=== PATIENT | male | born 1945 | race African-American/Black ===

== ENCOUNTER 2021-04-06 04:50 | Day surgery (SDC) | payer OTHER ==
[2021-04-05 08:22] VITALS: BMI 20.6
[2021-04-06] MEDS ORDERED: LIDOCAINE HCL/PF 2% SDV 5ML VIAL ONE (12:57)
[2021-04-06] MEDS ORDERED: MIDAZOLAM HCL 2 MG/2 ML SINGLE DOSE VIAL ONE (12:58)
[2021-04-06] MEDS ORDERED: PROPOFOL 20 ML ONE (12:58)
[2021-04-06] MEDS ORDERED: ceFAZolin SODIUM 1 GM VIAL IVPB ONE ×2 (13:01→13:24)
[2021-04-06] MEDS ORDERED: ceFAZolin SODIUM 1 GM VIAL ONE (13:24)
[2021-04-06] MEDS ORDERED: BACITRACIN 15 GM TUBE TOPICAL OINTMENT ONE (13:39)
[2021-04-06] MEDS ORDERED: oxyCODONE HCL 5 MG TABLET PO PRN (15:23)
[2021-04-06] MEDS ORDERED: ONDANSETRON 4 MG/2 ML VIAL IVPUSH PRN (15:23)
[2021-04-06] MEDS ORDERED: BACITRACIN 15 GM TUBE TOPICAL OINTMENT TP ONE (15:26)
[2021-04-06] MEDS ORDERED: LACTATED RINGERS SOLUTION 1,000 ML IV SCH (15:30)
[2021-04-06 18:22] VITALS: BP 127/69; PULSE 99; TEMP 97.4
== END 2021-04-06 19:15 | disposition home or self-care (01) ==
LOC: JASU-SURG 04:50
PROVIDERS: ATTEND Urology
PROC: 0V503ZZ Destruction of Prostate, Percutaneous Approach (ICD-10-PCS; principal; 2021-04-06 13:00)
DX: C61 Malignant neoplasm of prostate (principal); N40.0 Benign prostatic hyperplasia without lower urinary tract symptoms; N21.0 Calculus in bladder; N47.1 Phimosis; I10 Essential (primary) hypertension; E11.9 Type 2 diabetes mellitus without complications; Z79.84 Long term (current) use of oral hypoglycemic drugs
CPT/HCPCS: 55873; C2618; 82962; 94760